=== PATIENT | male | born 1995 | race American Indian/Alaskan Native ===

== ENCOUNTER 2021-12-30 14:46 | Emergency (ER) | payer SELFPAY ==
[2021-12-30] MEDS ORDERED: oxyCODONE /ACETAMINOPHEN 5-325MG TAB PO ONE (15:17)
[2021-12-30] MEDS ORDERED: RABIES IMMUNE GLOBULIN P/F 300 UNIT/ML INJ 5 ML IM ONE (15:20)
[2021-12-30] MEDS ORDERED: RABIES VACCINE, HUMAN DIPLOID/PF 2.5 UNIT/ML VIAL IM ONE (15:20)
[2021-12-30] MEDS ORDERED: WATER FOR IRRIG STERILE 250 ML BOTTLE IR ONE (15:21)
--- NOTE | 2021-12-30 15:24 | Emergency Department Report ---
ED Animal Bite HPI - General Chief Complaint: Animal Bite Stated Complaint: DOG BITE Time Seen by Provider: 12/30/21 15:06 Source: patient, EMS Mode of arrival: Ambulatory Limitations: Other - History of Present Illness Initial Comments: 26-year-old male with a past medical history of depression and deafness presents to the hospital after being bitten by an unknown pitbull. Patient sustained several bite wounds to his right lower leg and calf. Pain is mild to severe in intensity, worse with palpation and movement. No alleviating factors reported. Tetanus status unknown - Related Data Previous Rx's Medication Instructions Recorded Last Taken Type Amoxicillin/K Clav Tab [Augmentin 1 tab PO Q12HR #14 tab 12/30/21 Unknown Rx 875 mg] Ibuprofen [Motrin] 800 mg PO Q8HR PRN #20 tablet 12/30/21 Unknown Rx Allergies Allergy/AdvReac Type Severity Reaction Status Date / Time No Known Allergies Allergy Unverified 12/30/21 14:53 ED Review of Systems ROS: Stated complaint: DOG BITE Other details as noted in HPI Comment: All other systems reviewed and negative ED Past Medical Hx - Medications Home Medications: Home Medications Medication Instructions Recorded Confirmed Last Taken Type Amoxicillin/K Clav Tab [Augmentin 1 tab PO Q12HR #14 tab 12/30/21 Unknown Rx 875 mg] Ibuprofen [Motrin] 800 mg PO Q8HR PRN #20 tablet 12/30/21 Unknown Rx ED Physical Exam - General Limitations: Other - Other Other exam information: General: No acute distress Head: Atraumatic Eyes: normal appearance ENT: Moist mucous membranes Neck: Normal appearance, no midline tenderness Chest: Clear to auscultation bilaterally CV: Regular rate and rhythm Abdomen: Soft, normal bowel sounds, nontender, nondistended, no rebound or guarding Back: Normal inspection Extremity: Several superficial bite wounds to right lower leg anterior lateral and to lateral calf. No active bleeding. Full range of motion ankle and knee Neuro: Alert O x 3, no facial asymmetry, speech clear, no gross motor sensory deficit Psych: Appropriate behavior Skin: No rash ED Course Vital Signs 12/30/21 12/30/21 12/30/21 14:52 19:25 20:36 Temperature 98.7 F 98.2 F 98.2 F Pulse Rate 120 H 87 66 Respiratory 18 18 16 Rate Blood Pressure 128/82 118/58 118/70 [Left] O2 Sat by Pulse 99 100 98 Oximetry 12/30/21 20:37 Temperature Pulse Rate Respiratory Rate Blood Pressure [Left] O2 Sat by Pulse 98 Oximetry Critical care attestation.: If time is entered above; I have spent that time in minutes in the direct care of this critically ill patient, excluding procedure time. ED Disposition Clinical Impression: Dog bite, Encounter for prophylactic administration of rabies immune globulin, Need for prophylactic vaccination and inoculation against rabies Disposition: HOME / SELF CARE / HOMELESS Is pt being admited?: No Does the pt Need Aspirin: No Condition: Stable Instructions: Animal Bite, Adult, [id number], VIS, Rabies - [facility] (07/06/2019) Additional Instructions: You Received rabies immunoglobulin shot around your bite wound and rabies vaccine in your right shoulder area. You will need to follow-up with either a primary care doctor or the health department for additional rabies vaccines. Today is considered day 0 and you will need repeat vaccinations on day 3, 7, and 14. This corresponds to January 02, January 06, and January 13. Take the antibiotic as prescribed to prevent infection and to clean the wound with soapy water daily. Prescriptions: Amoxicillin/K Clav Tab [Augmentin 875 mg] 1 tab PO Q12HR #14 tab Ibuprofen [Motrin] 800 mg PO Q8HR PRN #20 tablet PRN Reason: Pain , Severe (7-10) Referrals: [facility] [Outside] - 3-5 Days [facility] [Provider Group] - 3-5 Days Time of Disposition: 20:40 ED Medical Decision Making - Radiology Data Radiology results: report reviewed RIGHT TIBIA/FIBULA, 2 VIEWS INDICATION / CLINICAL INFORMATION: dog bite, r/o foreign body. COMPARISON: None available. FINDINGS: Soft tissue trauma is noted in the superior aspect of the lower leg. Superficial gas is seen in the lateral soft tissues. No osseous abnormality. There is a 4 mm density identified in the region of the medial calf musculature posteriorly. It is unclear if this is a foreign object or a phlebolith. Please correlate with area of dog bite. IMPRESSION: 1. Soft tissue trauma is noted along the lateral aspect of the upper lower leg. No osseous abnormality. 2. 4 mm density is seen in the medial calf musculature. It is unclear if this is a foreign object or possibly a phlebolith and clinical correlation with site of dog bite is recommended. - Medical Decision Making 26-year-old male presents with dog bite. X-ray findings noted and felt to not be a foreign body since bite wounds are located laterally. Delay in disposition because rabies immunoglobulin and vaccine were not available at this facility and were ordered and transported from another facility. Patient did receive rabies immunoglobulin infiltration around the wound and rabies vaccine IM. Patient received tetanus, Percocet for pain, and Augmentin. Patient is deaf and therefore we communicated via typing on his phone. He was informed that he needs to follow-up for rabies vaccination on day 3, 7, and 14 at health department or PMD. Patient will be discharged with antibiotics and pain medication.
[2021-12-30] MEDS ORDERED: AMOXICILLIN/K CLAV 875/125MG TAB PO ONE (15:47)
[2021-12-30] MEDS ORDERED: POVIDONE-IODINE OINTMENT 28.35 GM TP ONE (15:47)
[2021-12-30] MEDS ORDERED: SODIUM CHLORIDE 0.9% IRR 500 ML BOTTLE IR ONE (16:13)
--- NOTE | 2021-12-30 16:22 | XRay Report ---
RIGHT TIBIA/FIBULA, 2 VIEWS INDICATION / CLINICAL INFORMATION: dog bite, r/o foreign body. COMPARISON: None available. FINDINGS: Soft tissue trauma is noted in the superior aspect of the lower leg. Superficial gas is seen in the l ateral soft tissues. No osseous abnormality. There is a 4 mm density identified in the region of the medial calf musculature posteriorly. It is un clear if this is a foreign object or a phlebolith. Please correlate with area of dog bite. IMPRESSION: 1. Soft tissue trauma is noted along the lateral aspect of the upper lower leg. No osseous abnormalit y. 2. 4 mm density is seen in the medial calf musculature. It is unclear if this is a foreign object or possibly a phlebolith and clinical correlation with site of dog bite is recommended. Signer Name: Gracie Shin MD Signed: 12/30/2021 4:17 PM Workstation Name: [id number]
[2021-12-30] MEDS ORDERED: POVIDONE-IODINE OINTMENT 28.35 GM TP SCH (20:00)
[2021-12-30 20:38] VITALS: BP 118/70
== END 2021-12-30 21:39 | disposition home or self-care (01) ==
LOC: ED 14:46
DX: S81.851A Open bite, right lower leg, initial encounter (principal); Z23 Encounter for immunization; Z79.899 Other long term (current) drug therapy; W54.0XXA Bitten by dog, initial encounter; Y93.89 Activity, other specified; Y92.89 Other specified places as the place of occurrence of the external cause; Y99.8 Other external cause status
CPT/HCPCS: 90375; 90471; 90472; 90675; 96372; 99284